=== PATIENT | female | born 2000 | race Hispanic/Latino ===

== ENCOUNTER 2025-05-30 12:53 | Inpatient (IN) | payer BC ==
[~2025-05-30] VITALS: Ht 157.5 cm; Wt 78.9 kg
--- NOTE | 2025-05-30 13:02 | ERN ---
ED Note History of Present Illness Stated Complaint: EPIGASTRIC PAIN. N/V Chief Complaint: Abdominal Pain Time Seen by MD: 12:57 Dictation: PATIENT IS A 25-YEAR-OLD FEMALE HERE WITH EPIGASTRIC PAIN WITH NAUSEA VOMITING AND FEVER ONSET TWO DAYS PRIOR TO ARRIVAL. NO DIARRHEA NO LOSS OF TASTE OR SMELL. SHE STATES SHE HAS A HISTORY OF GASTRITIS HOWEVER DOES NOT HAVE A PRIMARY CARE DOCTOR. LAST INTAKE WAS A SMASHED BANANA THIS MORNING STATES IT MAKES THE PAIN WORSE. DENIES ANY HISTORY OF ABDOMINAL SURGERIES GASTRIC SURGERY. Allergies: Coded Allergies: No Known Allergies (Unverified Allergy, Unknown, 05/30/25) Past Medical History Past Medical History: Other Additional Past Medical Hx: GASTRITIS Surgical History: None LMP: May 08, 2025 RN Note Reviewed/Agreed w/PFSH: Yes Review of System Dictation CONSTITUTIONAL: NEGATIVE EXCEPT FOR HPI FEVER CHILLS HEAD/FACE: NEGATIVE EXCEPT FOR HPI EENT: NEGATIVE EXCEPT FOR HPI RESPIRATORY: NEGATIVE EXCEPT FOR HPI GASTROINTESTINAL/ABDOMINAL: NEGATIVE EXCEPT FOR HPI EPIGASTRIC PAIN WITH NAUSEA VOMITING GENITOURINARY: NEGATIVE EXCEPT FOR HPI MUSCULOSKELETAL: NEGATIVE EXCEPT FOR HPI INTEGUMENTARY: NEGATIVE EXCEPT FOR HPI NEUROLOGICAL/PSYCH: NEGATIVE EXCEPT FOR HPI HEMATOLOGIC/LYMPHATIC: NEGATIVE EXCEPT FOR HPI ALL SYSTEMS NEGATIVE, EXCEPT NOTED ABOVE. 13 POINT REVIEW OF SYSTEMS ASSESSED AND ALL NEGATIVE EXCEPT FOR ABOVE. Initial Vital Sign VS Vital Signs Date Time Temp Pulse Resp B/P (MAP) Pulse Ox O2 Delivery O2 Flow Rate FiO2 05/30/25 12:54 97.9 136 16 126/92 95 Room Air 0 05/30/25 15:14 21 Physical Exam Dictation VITAL SIGNS REVIEWED GENERAL APPEARANCE: ALERT, ORIENTED X 3, MODERATE ACUTE DISTRESS, WELL DEVELOPED, NOURISHED. HEAD AND FACE: NON-TRAUMATIC. EYES: PERRL, PINK CONJUNCTIVAS, EYELID NO TRAUMA, ANTERIOR CHAMBER WITH ARCUS SENILIS. EARS: PINNAS INTACT AND NO SIGNS OF TRAUMA OR ERYTHEMA EAR CANALS CLEAR AND NO DISCHARGE TM NO ERYTHEMA NOSE: NO DISCHARGE, NO BLEEDING. OROPHARYNX: MOUTH NORMAL, TONGUE PINK, PHARYNX CLEAR,NO ERYTHEMA, TONSILS NO EXUDATES, NO ABSCESSES NOTED, MUCOUS MEMBRANE MOIST NECK: SUPPLE, NON-TENDER, NO THYROMEGALY, NO MASSES, NO JVD, NO BRUITS BREAST:DEFERRED CHEST:NO TENDERNESS, NO CREPITUS, NO PARADOXICAL MOVEMENT, NO RETRACTIONS LUNGS:CLEAR, WELL-VENTILATED, SYMMETRIC, NO RALES, NO WHEEZING, NO RHONCHI, NO STRIDOR, GOOD BREATH SOUNDS BILATERALLY HEART: REGULAR RATE, REGULAR RHYTHM, NO MURMUR, NO GALLOPS VASCULAR: NO PERIPHERAL EDEMA, ABDOMEN: SOFT, POSITIVE BOWEL SOUNDS, NONDISTENDED, NO GUARDING, EPIGASTRIC AND LEFT UPPER QUADRANT PAIN TENDERNESS PALPATION RECTAL: DEFERRED GENITAL: DEFERRED NEUROLOGICAL: NORMAL SPEECH, MOTOR FUNCTION INTACT, SENSORY FUNCTION INTACT MUSCULOSKELETAL: NECK NONTENDER, FULL RANGE OF MOTION, BACK NONTENDER, FULL RANGE OF MOTION, EXTREMITIES: NONTENDER, FULL RANGE OF MOTION SKIN: COLOR PINK, DRY, NO TURGOR, NO RASH, NO LACERATIONS, NO ABRASIONS, NO CONTUSIONS. LYMPHATIC: DEFERRED Results (Laboratory/Radiology) Laboratory/Radiology Laboratory Tests Test 05/30/25 13:14 05/30/25 13:19 White Blood Count 28.0 K/uL (4.8-10.8) H Red Blood Count 5.79 MIL/uL (4.00-5.50) H Hemoglobin 16.1 g/dL (12.0-16.0) H Hematocrit 47.6 % (36-48) Mean Corpuscular Volume 82.2 fL (79-99) Mean Corpuscular Hemoglobin 27.8 pg (27.0-33.0) Mean Corpuscular Hemoglobin Concent 33.8 g/dL (32.0-36.0) Red Cell Distribution Width 13.5 % (11.0-15.5) Platelet Count 427 K/uL (130-400) H Mean Platelet Volume 10.4 fL (7.5-10.5) Immature Granulocyte % (Auto) 0.6 % (0-1) Neutrophils (%) (Auto) 88.5 % (40.0-77.0) H Lymphocytes (%) (Auto) 5.5 % (21.0-51.0) L Monocytes (%) (Auto) 5.2 % (3.0-13.0) Eosinophils (%) (Auto) 0.0 % (0.0-8.0) Basophils (%) (Auto) 0.2 % (0.0-5.0) Neutrophils # (Auto) 24.8 K/uL (1.8-7.7) H Lymphocytes # (Auto) 1.5 K/uL (1.0-4.8) Monocytes # (Auto) 1.5 K/uL (0.1-1.0) H Eosinophils # (Auto) 0.00 K/uL (0.00-0.70) Basophils # (Auto) 0.05 K/uL (0.00-0.20) Absolute Immature Granulocyte (auto 0.17 K/uL (0-1) Nucleated Red Blood Cells 0.0 % (0.0-0.19) White Cell Morphology Comment See comments Sodium Level 135 mmol/L (136-145) L Potassium Level 3.8 mmol/L (3.5-5.1) Chloride Level 96 mmol/L (101-111) L Carbon Dioxide Level 24 mmol/L (21-32) Blood Urea Nitrogen 27 mg/dL (7-18) H Creatinine 1.2 mg/dL (0.5-1.0) H Glomerular Filtration Rate Calc 64 mL/min (>90) Random Glucose 138 mg/dL (70-105) H Lactic Acid Level 2.2 mmol/L (0.8-2.5) Total Calcium 9.5 mg/dL (8.5-10.1) Triglycerides Level 86 mg/dL (30-200) Lipase 234 U/L (16-77) H Serum Test, Qualitative NEGATIVE (NEGATIVE) Urine Color YELLOW (YELLOW) Urine Appearance TURBID (CLEAR) Urine pH 5.5 (5.0-8.0) Urine Specific Farner 1.035 (1.001-1.031) Urine Protein 100 mg/dL (NEGATIVE) H Urine Glucose (UA) 50 mg/dL (NEGATIVE) H Urine Ketones 60 mg/dL (NEGATIVE) H Urine Occult Blood SMALL (NEGATIVE) H Urine Nitrate NEGATIVE (NEGATIVE) Urine Bilirubin 1 mg/dL (NEGATIVE) H Urine Urobilinogen 3 mg/dL (0.2-1.0) H Urine Leukocyte Esterase 75 Moses/uL (NEGATIVE) H Urine RBC 26-50 /HPF (0-1) H Urine WBC 26-50 /HPF (0-1) H Urine Squamous Epithelial Cells MANY /HPF (0-2) Urine Non-Squamous Epithelial Cells 1 /HPF (0-2) Urine Bacteria RARE /HPF (None Seen) Urine Hyaline Casts 2-5 /LPF (0-1 /LPF) H Urine Other Casts 9 /LPF (None Seen) Urine HCG, Qualitative NEGATIVE (NEGATIVE) CLINICAL INFORMATION Small bowel obstruction COMPARISON None. TECHNIQUE Frontal view chest. FINDINGS Lines and tubes: None Lungs: Low lung volumes with bronchovascular crowding but without focal consolidation. Pleura: Unremarkable. No effusion or pneumothorax. Cardiomediastinal Silhouette: Unremarkable. Bones: Normal for age. Soft Tissues: Normal. IMPRESSION Low lung volumes with bronchovascular crowding but without focal consolidation. /[facility] Labs Reviewed?: Yes ED Course ED Course Orders Procedure Category Date Status Time Blood Cult KUMAR 05/30/25 In Process 12:59 Lactic Acid LAB 05/30/25 Complete 12:59 Cbc With Differential LAB 05/30/25 Complete 12:59 ,Urine Test LAB 05/30/25 Complete 12:59 Urinalysis Profile LAB 05/30/25 Complete 12:59 0.9%Nacl 1000ml (Ns PHA 05/30/25 Complete 1000ml) 13:00 Morphine 2mg Syg PHA 05/30/25 Complete (Morphine 2mg Syg) 13:00 Ondansetron 4mg Inj PHA 05/30/25 Complete (Zofran 4mg Inj) 13:00 Famotidine 20mg Vial PHA 05/30/25 Complete (Pepcid 20mg Vial) 13:00 Lipase LAB 05/30/25 Complete 12:59 Basic Metabolic Panel LAB 05/30/25 Complete 12:59 Testing, LAB 05/30/25 Complete Serum Hcg 13:56 0.9%Nacl 1000ml (Ns PHA 05/30/25 In Process 1000ml) 14:00 Ceftriaxone 2gm Vial PHA 05/30/25 In Process (Rocephin 2gm Inj) 13:56 Ct Abdomen/Pelvis CT 05/30/25 Resulted W/Contrast 13:56 Triglycerides LAB 05/30/25 Complete 13:59 Culture Urine KUMAR 05/30/25 In Process 14:03 Iohexol (Omnipaque) PHA 05/30/25 Complete 14:27 Morphine 4mg Syg PHA 05/30/25 In Process (Morphine 4mg Syg) 16:30 Morphine 4mg Syg PHA 05/30/25 Complete (Morphine 4mg Syg) 16:30 Morphine 4mg Syg PHA 7/27/25 In Process (Morphine 4mg Syg) 16:30 Lactic Acid (Removed) LAB 05/30/25 Logged 16:50 Current Medications Medications (Trade) Dose Ordered Sig/Aleksandr Route PRN Reason Start Time Stop Time Status Last Admin Dose Admin Ceftriaxone Sodium (Rocephin 2gm Inj) 2 gm ONCE IVPB 05/30/25 13:56 05/30/25 18:00 05/30/25 14:17 Famotidine (Pepcid 20mg Vial) 20 mg ONCE ONCE IV 05/30/25 13:00 05/30/25 13:02 DC 05/30/25 13:26 Iohexol (Omnipaque) 75 ml STK-MED ONCE IV 05/30/25 14:27 05/30/25 14:28 DC Morphine Sulfate (morPHINE 2MG SYG) 2 mg ONCE ONCE IVP 05/30/25 13:00 05/30/25 13:02 DC 05/30/25 13:26 Morphine Sulfate (morPHINE 4MG SYG) 4 mg ONCE IVP 05/30/25 16:30 05/30/25 20:30 05/30/25 16:11 Morphine Sulfate (morPHINE 4MG SYG) 4 mg ONCE IVP 05/30/25 16:30 05/30/25 20:30 Morphine Sulfate (morPHINE 4MG SYG) 4 mg ONCE ONCE IVP 05/30/25 16:30 05/30/25 16:07 DC Ondansetron HCl (zoFRAN 4MG INJ) 4 mg ONCE ONCE IVP 05/30/25 13:00 05/30/25 13:02 DC 05/30/25 13:26 Sodium Chloride 1,000 ml @ 0 mls/hr ONCE ONCE IV 05/30/25 13:00 05/30/25 13:02 DC 05/30/25 13:26 Sodium Chloride 2,286 ml @ 762 mls/hr ONCE IV 05/30/25 14:00 05/30/25 18:00 05/30/25 14:17 Vital Signs Date Time Temp Pulse Resp B/P (MAP) Pulse Ox O2 Delivery O2 Flow Rate FiO2 05/30/25 15:14 83 16 114/73 98 Room Air* 0 21 05/30/25 12:54 97.9 136 16 126/92 95 Room Air 0 1555/SPOKE WITH PATIENT AND HER MOTHER AT BEDSIDE AT LENGTH SHE REMAINS HEMODYNAMICALLY STABLE SHE IS A[place] [address]28 WBCS WITH PANCREATITIS. SHE IS ALSO SEVERELY DEHYDRATED WITH A AN ACUTE KIDNEY INJURY SHE HAS BEEN GIVEN FLUIDS ROCEPHIN AND AGREES TO BE ADMITTED TO THE HOSPITAL. NO PAIN AT THIS TIME NO NAUSEA VOMITING AT THIS TIME. NO PRIMARY CARE DOCTOR TO FOLLOW UP WITH THE [id number]/ 1655/ here and reviewe CT labs and interventions for pancreatitis and pain management to include 30 per kilos fluids and Rocephin 2 g. Medical Decision Making MDM MDM: DIFFERENTIAL DIAGNOSIS: ACUTE APPENDICITIS/DIVERTICULITIS/ECTOPIC /PANCREATITIS/HYPERTRIGLYCERIDEMIA/ELECTROLYTE IMBALANCE/DEHYDRATION/SEPSIS RATIONALE: TESTS CONSIDERED AND ORDERED SECONDARY TO SHARED DECISION MAKING INCLUDE: LABS, AND RADIOLOGY PREVIOUS OUTSIDE RECORDS REVIEWED: OLD ER VISITS. RISK OF COMPLICATION AND/OR MORBIDITY OR MORTALITY OF PATIENT MANAGEMENT: MODERATE MEDICATIONS-PER MEDICATION RECONCILIATION NEED FOR HOSPITALIZATION: PATIENT DOES MEET CRITERIA FOR HOSPITALIZATION. FLUID RESUSCITATION NPO AND PAIN MANAGEMENT. NEED FOR EMERGENCY MAJOR/MINOR SURGERY: NO THERE ARE NO SOCIAL CONCERNS WITH THIS PATIENT. PRESCRIPTION DRUG MANAGEMENT PRESCRIPTIONS WILL INCLUDE SYMPTOMATIC CARE PATIENT'S PRIOR EXTERNAL MEDICAL RECORDS FROM OTHER ER VISITS WERE REVIEWED BY ME INDICATED. PRIOR TESTING AND RESULTS FROM PREVIOUS VISITS WERE REVIEWED. PRIOR TESTS WERE TAKEN INTO ACCOUNT WITH MEDICAL DECISION MAKING AND RESOURCE UTILIZATION, INDEPENDENT HISTORIAN/HISTORIANS WERE USED TO OBTAIN COMPLETE MEDICAL HISTORY. I INDEPENDENTLY INTERPRETED THE TEST THAT WERE PERFORMED, RESULTS WERE REVIEWED BY ME AND CONSIDERED FINDINGS ON RADIOLOGY IF ORDERED. MEDICAL MANAGEMENT AND EXAMINATION INTERPRETATION DISCUSSIONS WERE HAD BY ME WITH OTHER QUALIFIED HEALTHCARE PROFESSIONALS INDICATED FOR THE PATIENT'S CARE. DX & DISP Disposition: Inpatient Decision to Admit Time: 15:53 Departure Impression: Primary Impression: Acute pancreatitis Additional Impressions: Acute kidney injury, Nausea & vomiting, Sepsis Condition: Stable Time of Disposition: 15:53 I have reviewed the case, and I agree with, Diagnosis and Plan YAJAIRA BOBBY NP May 30, 2025 13:02
[2025-05-30 13:21] LABS: IMMATURE GRANULOCYTE ABSOLUTE 0.17 K/uL (0-1); NUCLEATED RED BLOOD CELLS 0.0 % (0.0-0.19); PLATELET COUNT (AUTO) 427 K/uL (130-400); RED BLOOD CELL COUNT(AUTO) 5.79 MIL/uL (4.00-5.50); RED CELL DISTRIBUTION WIDTH 13.5 % (11.0-15.5); WHITE BLOOD COUNT (AUTO) 28.0 K/uL (4.8-10.8)
[2025-05-30] MEDS: 0.9%NACL 1000ML 1,000 ML IV ONE (13:26)
[2025-05-30] MEDS: FAMOTIDINE 20MG VIAL IV ONE (13:26)
[2025-05-30 13:47] LABS: CREATININE 1.2 mg/dL (0.5-1.0); GLOMERULAR FILTR. RATE CALC 64.0 mL/min (>90); GLUCOSE,RANDOM 138.0 mg/dL (70-105); SODIUM SERUM 135.0 mmol/L (136-145); UREA NITROGEN, BLOOD 27.0 mg/dL (7-18)
[2025-05-30 13:56] LABS: APPEARANCE,URINE TURBID (CLEAR); GLUCOSE, URINE (UA) 50 mg/dL (NEGATIVE); LEUKOCYTE ESTERASE ,URINE 75 Leu/uL (NEGATIVE); NITRATE,URINE NEGATIVE (NEGATIVE); OCCULT BLOOD,URINE SMALL (NEGATIVE)
[2025-05-30 14:00] LABS: HCG,QUALITATIVE URINE NEGATIVE (NEGATIVE)
[2025-05-30 14:03] LABS: ADD UA MICROSCOPIC YES
[2025-05-30 14:05] LABS: NON-SQUAMOUS EPITHELIAL CELL 1 /HPF (0-2); OTHER CASTS, URINE 9 /LPF (None Seen); SQUAMOUS EPITHELIAL CELL,UR MANY /HPF (0-2)
[2025-05-30] MEDS: 0.9%NACL 1000ML 2,286 ML IV SCH (14:17)
[2025-05-30] MEDS ORDERED: IOHEXOL-350 75 ML VIAL IV ONE (14:27)
--- NOTE | 2025-05-30 15:26 | HMCIMG ---
CLINICAL INFORMATION Periumbilical pain COMPARISON None. TECHNIQUE Volumetric helical CT images of the abdomen and pelvis with contrast FINDINGS Liver: Normal. Gallbladder: No calcified gallstones or sludge. No wall thickening. Biliary System: Non-dilated. Pancreas: Normal. Spleen: Normal. Adrenals: Normal. Kidneys: Normal bilaterally. Ureters: Normal. Bladder: Normal. Pelvis: No pelvic masses. No abnormal pelvic fluid. Stomach: Normal. Duodenum: Normal. Small Bowel: Normal. Colon: Normal. Appendix: Normal. Lymph Nodes: No lymphadenopathy. Peritoneum: No ascites or free air. Retroperitoneum: Normal. Vessels: Normal. Abdominal Wall: Normal. Bones: Normal. Lung Bases: Normal. Inferior Mediastinum: Normal. IMPRESSION No acute intra-abdominal findings. Normal appendix. /King
--- NOTE | 2025-05-30 17:35 | HP ---
[facility] HISTORY AND PHYSICAL Date of Service: May 30, 2025 Time of Service: 17:28 Belly pain with nausea or vomiting HISTORY OF PRESENT ILLNESS: [ 25-year-old female who comes with two day history of epigastric pain with nausea and vomiting made worse by food. She describes the pain as sharp located in the epigastrium radiating over the left upper quadrant. She has had associated nausea and vomiting multiple times vomitus was yellow and today is just watery slightly yellow-tinged in about 100 cc in the bag next to the bed. She states that she had gastroenteritis about a month ago came to the emergency department and was given some medications for her stomach. Later the patient went to [place] and was told her organs were failing. Workup done today include a CAT scan of the abdomen and pelvis which was negative however laboratory data shows lipase of 236 or elevated ] REVIEW OF SYSTEMS CONSTITUTIONAL: Denies fevers, chills, or night sweats. No unintentional weight loss reported. NEUROLOGICAL: Denies headache, amaurosis fugax, motor weakness, sensory deficit, vertigo/spinning sensation, gait abnormalities, or tremors. ENT: No hearing loss, otalgia, otorrhea, rhinitis, rhinorrhea, hoarseness, or sore throat. CARDIOVASCULAR: Denies any exertional angina, dyspnea on exertion, orthopnea, paroxysmal nocturnal dyspnea, palpitations, life-threatening arrhythmias, claudication. PULMONARY: Denies any shortness of breath, cough, phlegm/sputum, hemoptysis, pleuritic chest pain. SLEEP: Denies morning headaches, daytime somnolence or napping. Denies difficulty falling asleep, staying asleep, waking from sleep. Denies knowledge of snoring. GASTROINTESTINAL: Denies any type of dysphagia to either liquids or solids. Positive nausea, vomiting, no pyrosis, no early satiety, positive abdominal pain, no diarrhea, constipation, or changes in stool consistency or caliber. Denies coffee-ground emesis, hematemesis, hematochezia, or melanotic stools. GENITOURINARY: Denies frequency, urgency, nocturia, hematuria or incontinence (Storage/Irritative symptoms.) Low urinary stream, straining to void, urinary intermittency or hesitancy, splitting of the voiding stream, terminal dribbling. ENDOCRINOLOGIC: Denies polyuria, polydipsia, polyphagia or heat/cold intolerances. HEMATOLOGIC: Denies thrombophilia/previous clots, or coagulopathy/bleeding disorders. ONCOLOGIC: Denies personal history of malignancy. DERMATOLOGIC: Denies rashes or pruritus. PSYCHIATRIC: Denies any suicidal or homicidal ideation. Denies hallucinations. PAST MEDICAL HISTORY: [No hypertension, diabetes, heart disease, TB or hepatitis does not take any medicines on a regular basis ] PAST SURGICAL HISTORY: [Negative ] PAST SOCIAL HISTORY: [ She lives with her mother her father of an [place], she is an occasional smoker occasional drinker denies any drug use or IV drug use] FAMILY HISTORY: [ See above ] Coded Allergies: No Known Allergies (Unverified Allergy, Unknown, 05/30/25) PHYSICAL EXAM GENERAL APPEARANCE: The patient is awake, alert, and oriented, in no acute cardiopulmonary distress. NEUROLOGICAL: Cranial nerves II-XII grossly intact. Motor is 5/5 in bilateral upper and lower extremities proximal to distal. No sensory deficits. HEENT: Face is symmetric. Pupils are equal and reactive. Extraocular movements are intact. NECK: Supple. No JVD. No thyromegaly. No submental, submandibular, pre-/p ostauricular, occipital or supraclavicular lymphadenopathy. CHEST: Normal chest expansion. No Telemetry. LUNGS: Absence of any rales, rhonchi or any wheezing. CARDIOVASCULAR: Regular. S1 and S2 normal. No appreciable rubs, murmurs or gallops. ABDOMEN: Soft, positive tenderness, and nondistended. There is no rebound, voluntary guarding, or rigidity. Bowel sounds are hypoactive throughout the abdomen : Deferred. No Bernard. EXTREMITIES: Non-edematous and not cyanotic. No clubbing. Good capillary refill. SKIN: No skin breakdown. Vital Sign (Last 24 Hours) 05/30/25 05/30/25 12:54 15:14 Temp 97.9 Pulse 83 Resp 16 B/P (MAP) 114/73 Pulse Ox 98 O2 Delivery Room Air* O2 Flow Rate 0 FiO2 21 LABS: Laboratory: Test 05/30/25 13:19 05/30/25 13:14 Range/Units Urine Color YELLOW YELLOW Urine Appearance TURBID CLEAR Urine pH 5.5 5.0-8.0 Urine Specific Pindall 1.035 H 1.001-1.031 Urine Protein 100 H NEGATIVE mg/dL Urine Glucose (UA) 50 H NEGATIVE mg/dL Urine Ketones 60 H NEGATIVE mg/dL Urine Occult Blood SMALL H NEGATIVE Urine Nitrate NEGATIVE NEGATIVE Urine Bilirubin 1 H NEGATIVE mg/dL Urine Urobilinogen 3 H 0.2-1.0 mg/dL Urine Leukocyte Esterase 75 H NEGATIVE Moses/uL Urine RBC 26-50 H 0-1 /HPF Urine WBC 26-50 H 0-1 /HPF Urine Squamous Epithelial Cells MANY 0-2 /HPF Urine Non-Squamous Epithelial Cells 1 0-2 /HPF Urine Bacteria RARE None Seen /HPF Urine Hyaline Casts 2-5 H 0-1 /LPF /LPF Urine Other Casts 9 None Seen /LPF Urine HCG, Qualitative NEGATIVE NEGATIVE White Blood Count 28.0 H 4.8-10.8 K/uL Red Blood Count 5.79 H 4.00-5.50 MIL/uL Hemoglobin 16.1 H 12.0-16.0 g/dL Hematocrit 47.6 36-48 % Mean Corpuscular Volume 82.2 79-99 fL Mean Corpuscular Hemoglobin 27.8 27.0-33.0 pg Mean Corpuscular Hemoglobin Concent 33.8 32.0-36.0 g/dL Red Cell Distribution Width 13.5 11.0-15.5 % Platelet Count 427 H 130-400 K/uL Mean Platelet Volume 10.4 7.5-10.5 fL Immature Granulocyte % (Auto) 0.6 0-1 % Neutrophils (%) (Auto) 88.5 H 40.0-77.0 % Lymphocytes (%) (Auto) 5.5 L 21.0-51.0 % Monocytes (%) (Auto) 5.2 3.0-13.0 % Eosinophils (%) (Auto) 0.0 0.0-8.0 % Basophils (%) (Auto) 0.2 0.0-5.0 % Neutrophils # (Auto) 24.8 H 1.8-7.7 K/uL Lymphocytes # (Auto) 1.5 1.0-4.8 K/uL Monocytes # (Auto) 1.5 H 0.1-1.0 K/uL Eosinophils # (Auto) 0.00 0.00-0.70 K/uL Basophils # (Auto) 0.05 0.00-0.20 K/uL Absolute Immature Granulocyte (auto 0.17 0-1 K/uL Nucleated Red Blood Cells 0.0 0.0-0.19 % White Cell Morphology Comment See comments Sodium Level 135 L 136-145 mmol/L Potassium Level 3.8 3.5-5.1 mmol/L Chloride Level 96 L 101-111 mmol/L Carbon Dioxide Level 24 21-32 mmol/L Blood Urea Nitrogen 27 H 7-18 mg/dL Creatinine 1.2 H 0.5-1.0 mg/dL Glomerular Filtration Rate Calc 64 >90 mL/min Random Glucose 138 H 70-105 mg/dL Lactic Acid Level 2.2 0.8-2.5 mmol/L Total Calcium 9.5 8.5-10.1 mg/dL Triglycerides Level 86 30-200 mg/dL Lipase 234 H 16-77 U/L Serum Test, Qualitative NEGATIVE NEGATIVE Current Medications Medications (Trade) Dose Ordered Sig/Aleksandr Route PRN Reason Start Time Stop Time Status Last Admin Dose Admin Ceftriaxone Sodium (Rocephin 2gm Inj) 2 gm ONCE IVPB 05/30/25 13:56 05/30/25 18:00 05/30/25 14:17 2 GM Morphine Sulfate (morPHINE 4MG SYG) 4 mg ONCE IVP 05/30/25 16:30 05/30/25 20:30 05/30/25 16:11 4 MG Morphine Sulfate (morPHINE 4MG SYG) 4 mg ONCE IVP 05/30/25 16:30 05/30/25 20:30 Sodium Chloride 2,286 ml @ 762 mls/hr ONCE IV 05/30/25 14:00 05/30/25 18:00 05/30/25 14:17 762 MLS/HR DIAGNOSTICS / RADIOLOGY: [ ] ASSESSMENT: [ 1. Acute abdominal pain with nausea vomiting 2. Pancreatitis acute 3. Leukocytosis 4. Possible UTI ] PLAN: [Keep her NPO, IV fluids and antibiotics as has already been started here in the emergency department out of an abundance of precaution we will get a General surgery consultation and recheck her pancreatic enzymes in the morning Morphine and Zofran for pain control ] SUE CAMACHO MD May 30, 2025 17:35
[2025-05-30] MEDS: DEXTROSE 5 %-0.45 % NACL 1,000 ML IV SCH (19:35)
[2025-05-30] MEDS: FAMOTIDINE 20MG VIAL IV SCH (21:47)
[2025-05-30 22:10] VITALS: BP 117/71; PULSE 74; RESP 20; TEMP 98.6
--- NOTE | 2025-05-30 22:10 | NUR ---
Pt. received AAOX3 via stretcher from ER @ this time, transferred to bed, made comfortable, tolerated well, oriented to rm./surroundings, instructed on use of call-light, verbalized understanding, call-light in reach, rails up X2; no discomforts voiced out @ this time.
[2025-05-31] VITALS (8 sets, daily range): BP systolic 104–147; BP diastolic 63–92; PULSE 54–87; RESP 17–20; TEMP 97.8–98.6; O2SAT 98–99
[2025-05-31 03:41] LABS: IMMATURE GRANULOCYTE ABSOLUTE 0.05 K/uL (0-1); NUCLEATED RED BLOOD CELLS 0.0 % (0.0-0.19); PLATELET COUNT (AUTO) 286 K/uL (130-400); RED BLOOD CELL COUNT(AUTO) 4.75 MIL/uL (4.00-5.50); RED CELL DISTRIBUTION WIDTH 13.3 % (11.0-15.5); WHITE BLOOD COUNT (AUTO) 13.1 K/uL (4.8-10.8)
[2025-05-31 03:54] LABS: ASPARTATE AMINOTRANSFERASE 15.0 U/L (10-37); CREATININE 0.6 mg/dL (0.5-1.0); GLOMERULAR FILTR. RATE CALC 128.0 mL/min (>90); GLUCOSE,RANDOM 96.0 mg/dL (70-105); SODIUM SERUM 137.0 mmol/L (136-145); TOTAL PROTEIN, SERUM 6.3 g/dL (6.0-8.3); UREA NITROGEN, BLOOD 12.0 mg/dL (7-18)
[2025-05-31 08:08] LABS: LACTATE DEHYDROGENASE 149.0 U/L (81-234)
--- NOTE | 2025-05-31 09:05 | NUR ---
DCP: HOME Sw met with pt's mother Shantelle Monroy [phone]. per mother, pt lives with her in a mobile home with ramp. Pt works at [employer], drives, able o complete ADLS and IADLS on her own. Pt is independent of ambulation, no DMe or in home care services. Pt has no PCP and uses [facility] for rx needs. Community resources given, denies dc neds, will return home with mother Addendum: 05/31/25 at 0908 by AIDAN ESTEBAN Amended: Links added.
[2025-05-31 09:37] LABS: AMPHET/METH SCREEN,URINE NEGATIVE (NEGATIVE); BARBITURATE SCREEN, URINE NEGATIVE (NEGATIVE); CANNABINOID SCREEN,URINE POSITIVE (NEGATIVE); COCAINE SCREEN,URINE NEGATIVE (NEGATIVE)
--- NOTE | 2025-05-31 10:12 | CONS ---
CONSULT NOTE: Consulting physician: Dr. Gary Consulting service: [facility] Reason for consultation: Pancreatitis History of present illness: This is a 25-year-old female with no significant medical history that has been consulted to surgery after presenting to the hospital with a two day history of epigastric pain associated with nausea and vomiting made worse with food. Patient's starts that she has had excessive vomiting over the last two days. Patient reports similar presentation with diagnosis of gastroenteritis about a month prior. Patient presentation reportedly similar to previous hospitaliza tion. Lipase initially greater than 236 which could be from excessive retching. No trending down. On physical exam no significant abdominal distention but patient tender no initial signs of peritonitis. Patient currently NPO. Imaging performed showing no signs of cholelithiasis or gallbladder such. Medical history: No hypertension, diabetes, heart disease, TB or hepatitis does not take any medicines on a regular basis PAST SURGICAL HISTORY: Negative PAST SOCIAL HISTORY: She lives with her mother her father of an [place], she is an occasional smoker occasional drinker denies any drug use or IV drug use FAMILY HISTORY: See above Coded Allergies: No Known Allergies (Unverified Allergy, Unknown, 05/30/25) Review of systems: General: No Fever, No Chills, No Night Sweats, No Fatigue, No Malaise, No Appetite, No Other HEENT: No Head Aches, No Visual Changes, No Eye Pain, No Ear Pain, No Dysphasia, No Sinus Congestion, No Post Nasal Drip, No Sore Throat, No Other Pulmonary: No Dyspnea, No Cough, No Pleuritic Chest Pain, No Other Cardiovascular: No: Chest Pain, Palpitations, Orthopnea, Paroxysmal No Dyspnea, Edema, Lt Headedness, Other Gastrointestinal: No: Nausea, Vomiting, Diarrhea, Constipation, Melena, Hematochezia, Other Genitourinary: No Dysuria, No Frequency, No Incontinence, No Hematuria, No Retention, No Other Musculoskeletal: No: other, neck pain, shoulder pain, arm pain, back pain, hand pain, leg pain, foot pain Skin: No Urticaria, No Rash, No Other Neurological: No: Weakness, Numbness, Incoordination, Change in speech, Confusion, Seizures, Other Physical exam: General: Awake alert and oriented Heart: Regular rate and rhythm} Lungs: Clear to auscultation no distress Abdomen: [Soft, nontender, nondistended diffuse abdominal discomfort peritonitis Assessment: This is a 25-year-old female with the acute pancreatitis and abdominal pain of unknown etiology Plan: At this point in time no immediate surgical intervention planned Pancreatitis likely from excessive retching Patient to remain NPO Redraw and lipase tomorrow No immediate surgical intervention at this time Dr. Acharya to be updated patient's status and surgical team to follow patient closely PEDRO PABLO GRIFFIN Jr. May 31, 2025 10:12
[2025-05-31] MEDS: MAG/ALUM/SIMETH 30 ML UDCUP PO ONE (12:15)
--- NOTE | 2025-05-31 12:16 | NUR ---
MEDICATION REFUSAL PATIENT REFUSED MAG-AL-PLUS. PATIENT STATES THAT TAKING PO MEDICATIONS MAKES HER NAUSEA WORSE. EDUCATION PROVIDED. PATIENT REFUSED.
--- NOTE | 2025-05-31 14:12 | PN ---
[facility] PROGRESS NOTE Date of Service: May 31, 2025 Time of Service: 14:01 SUBJECTIVE: She is a 25-year-old female presented with a chief complaint of nausea and vomiting associated with epigastric abdominal pain for last 2 days. He had 15- 20 episodes of vomiting yesterday which was greenish. She did not complain of hematemesis, loose stool, burning micturition, shortness of breath, cough, dizziness and constipation. She said that she occasionally consumes marijuana and last time she had was 1 week back. She admitted that her abdominal pain gets better with taking bath. She do not consume alcohol. In ED the pertinent lab was [place] 09926, lipase 236, creatinine 1.2, lactic acid 2.2 has L on, urine with pus cells 25-50, positive for leukocyte esterase. CT abdomen pelvis with contrast revealed no acute abdomen abnormality. She was kept NPO, and started on D NS at 1:25 a.m. mL/hour, Rocephin1 g daily, and ondansetron. She was admitted on the floor for further evaluation and management. 05/31/2025-she was evaluated bedside this morning. She was complaining of abdominal pain and nausea. He is hemodynamically stable her pertinent lab [place] CBC 33429, potassium 3.1, lactic acid 2.2, lipase 234>186, CRP 6. She is kept NPO for possible acute pancreatitis and intractable nausea vomiting. She is continued on IV fluid, Zofran PRN, morphine PRN and Rocephin. Electrolytes repleted. Urine culture was sent. Started on Protonix 40 mg IV b.i.d. consulted Gastroenterology for necessary evaluation. Plan as discussed below. REVIEW OF SYSTEMS CONSTITUTIONAL: Denies fevers, chills, or night sweats. No unintentional weight loss reported. NEUROLOGICAL: Denies headache, amaurosis fugax, motor weakness, sensory deficit, vertigo/spinning sensation, gait abnormalities, or tremors. ENT: No hearing loss, otalgia, otorrhea, rhinitis, rhinorrhea, hoarseness, or sore throat. CARDIOVASCULAR: Denies any exertional angina, dyspnea on exertion, orthopnea, paroxysmal nocturnal dyspnea, palpitations, life-threatening arrhythmias, cla udication. PULMONARY: Denies any shortness of breath, cough, phlegm/sputum, hemoptysis, pleuritic chest pain. SLEEP: Denies morning headaches, daytime somnolence or napping. Denies difficulty falling asleep, staying asleep, waking from sleep. Denies knowledge of snoring. GASTROINTESTINAL: Denies any type of dysphagia to either liquids or solids. Positive nausea, vomiting, no pyrosis, no early satiety, positive abdominal pain, no diarrhea, constipation, or changes in stool consistency or caliber. Denies coffee-ground emesis, hematemesis, hematochezia, or melanotic stools. GENITOURINARY: Denies frequency, urgency, nocturia, hematuria or incontinence (Storage/Irritative symptoms.) Low urinary stream, straining to void, urinary intermittency or hesitancy, splitting of the voiding stream, terminal dribbling. ENDOCRINOLOGIC: Denies polyuria, polydipsia, polyphagia or heat/cold intolerances. HEMATOLOGIC: Denies thrombophilia/previous clots, or coagulopathy/bleeding disorders. ONCOLOGIC: Denies personal history of malignancy. DERMATOLOGIC: Denies rashes or pruritus. PSYCHIATRIC: Denies any suicidal or homicidal ideation. Denies hallucinations. PHYSICAL EXAM GENERAL APPEARANCE: The patient is awake, alert, and oriented, in no acute cardiopulmonary distress. NEUROLOGICAL: Cranial nerves II-XII grossly intact. Motor is 5/5 in bilateral upper and lower extremities proximal to distal. No sensory deficits. HEENT: Face is symmetric. Pupils are equal and reactive. Extraocular movements are intact. NECK: Supple. No JVD. No thyromegaly. No submental, submandibular, pre- /postauricular, occipital or supraclavicular lymphadenopathy. CHEST: Normal chest expansion. No Telemetry. LUNGS: Absence of any rales, rhonchi or any wheezing. CARDIOVASCULAR: Regular. S1 and S2 normal. No appreciable rubs, murmurs or gallops. ABDOMEN: Soft, positive tenderness, and nondistended. There is no rebound, voluntary guarding, or rigidity. Bowel sounds are hypoactive throughout the abdomen : Deferred. No [place]. EXTREMITIES: Non-edematous and not cyanotic. No clubbing. Good capillary refill. SKIN: No skin breakdown. Vital Signs (last 8hr) Date Time Temp Pulse Resp B/P (MAP) Pulse Ox O2 Delivery O2 Flow Rate FiO2 05/31/25 11:11 97.9 56 18 124/77 99 Room Air 7/28/25 09:05 99 Room Air* 0 21 05/31/25 08:35 98.1 87 18 147/92 99 Room Air LABS: Laboratory: Test 05/31/25 03:10 05/30/25 20:14 05/30/25 13:19 05/30/25 13:14 Range/Units White Blood Count 13.1 #H 4.8-10.8 K/uL Red Blood Count 4.75 4.00-5.50 MIL/uL Hemoglobin 13.2 12.0-16.0 g/dL Hematocrit 40.5 36-48 % Mean Corpuscular Volume 85.3 79-99 fL Mean Corpuscular Hemoglobin 27.8 27.0-33.0 pg Mean Corpuscular Hemoglobin Concent 32.6 32.0-36.0 g/dL Red Cell Distribution Width 13.3 11.0-15.5 % Platelet Count 286 # 130-400 K/uL Mean Platelet Volume 10.6 H 7.5-10.5 fL Immature Granulocyte % (Auto) 0.4 0-1 % Neutrophils (%) (Auto) 64.1 40.0-77.0 % Lymphocytes (%) (Auto) 26.6 21.0-51.0 % Monocytes (%) (Auto) 8.5 3.0-13.0 % Eosinophils (%) (Auto) 0.2 0.0-8.0 % Basophils (%) (Auto) 0.2 0.0-5.0 % Neutrophils # (Auto) 8.4 H 1.8-7.7 K/uL Lymphocytes # (Auto) 3.5 1.0-4.8 K/uL Monocytes # (Auto) 1.1 H 0.1-1.0 K/uL Eosinophils # (Auto) 0.02 0.00-0.70 K/uL Basophils # (Auto) 0.03 0.00-0.20 K/uL Absolute Immature Granulocyte (auto 0.05 0-1 K/uL Nucleated Red Blood Cells 0.0 0.0-0.19 % Sodium Level 137 136-145 mmol/L Potassium Level 3.1 L 3.5-5.1 mmol/L Chloride Level 103 101-111 mmol/L Carbon Dioxide Level 28 21-32 mmol/L Blood Urea Nitrogen 12 7-18 mg/dL Creatinine 0.6 0.5-1.0 mg/dL Glomerular Filtration Rate Calc 128 >90 mL/min Random Glucose 96 70-105 mg/dL Total Calcium 8.4 L 8.5-10.1 mg/dL Total Bilirubin 0.4 0.2-1.0 mg/dL Aspartate Amino Transf (AST/SGOT) 15 10-37 U/L Alanine Aminotransferase (ALT/SGPT) 20 12-78 U/L Alkaline Phosphatase 91 50-136 U/L Lactate Dehydrogenase 149 81-234 U/L C-Reactive Protein, Quantitative 6.00 H 0.5-3.0 mg/L Total Protein 6.3 6.0-8.3 g/dL Albumin 3.6 3.5-5.0 g/dL Lipase 186 H 16-77 U/L Procalcitonin < 0.05 L 0.05-0.5 ng/mL Lactic Acid Level 1.1 0.8-2.5 mmol/L Urine Color YELLOW YELLOW Urine Appearance TURBID CLEAR Urine pH 5.5 5.0-8.0 Urine Specific [place] 1.035 H 1.001-1.031 Urine Protein 100 H NEGATIVE mg/dL Urine Glucose (UA) 50 H NEGATIVE mg/dL Urine Ketones 60 H NEGATIVE mg/dL Urine Occult Blood SMALL H NEGATIVE Urine Nitrate NEGATIVE NEGATIVE Urine Bilirubin 1 H NEGATIVE mg/dL Urine Urobilinogen 3 H 0.2-1.0 mg/dL Urine Leukocyte Esterase 75 H NEGATIVE Moses/uL Urine RBC 26-50 H 0-1 /HPF Urine WBC 26-50 H 0-1 /HPF Urine Squamous Epithelial Cells MANY 0-2 /HPF Urine Non-Squamous Epithelial Cells 1 0-2 /HPF Urine Bacteria RARE None Seen /HPF Urine Hyaline Casts 2-5 H 0-1 /LPF /LPF Urine Other Casts 9 None Seen /LPF Urine HCG, Qualitative NEGATIVE NEGATIVE Urine Opiates Screen NEGATIVE NEGATIVE Urine Barbiturates Screen NEGATIVE NEGATIVE Urine Phencyclidine Screen NEGATIVE NEGATIVE Urine Amphetamines Screen NEGATIVE NEGATIVE Urine Benzodiazepines Screen NEGATIVE NEGATIVE Urine Cocaine Screen NEGATIVE NEGATIVE Urine Marijuana (THC) Screen POSITIVE H NEGATIVE White Cell Morphology Comment See comments Triglycerides Level 86 30-200 mg/dL Serum Test, Qualitative NEGATIVE NEGATIVE Current Medications Medications (Trade) Dose Ordered Sig/Aleksandr Route PRN Reason Start Time Stop Time Status Last Admin Dose Admin Ceftriaxone Sodium (ROCEphine 1G INJ) 1 gm Q24H IVPB 05/30/25 19:30 06/09/25 19:29 05/30/25 19:33 1 GM Ceftriaxone Sodium (Rocephin 2gm Inj) 2 gm ONCE IVPB 05/30/25 13:56 05/30/25 18:00 DC 05/30/25 14:17 2 GM Dextrose/Sodium Chloride 1,000 ml @ 125 mls/hr Q8H IV 05/30/25 19:30 06/29/25 19:29 05/31/25 06:27 125 MLS/HR Famotidine (Pepcid 20mg Vial) 20 mg Q12H9 IV 05/30/25 21:00 05/31/25 11:51 DC 05/31/25 09:05 20 MG Morphine Sulfate (morPHINE 4MG SYG) 4 mg ONCE IVP 05/30/25 16:30 05/30/25 20:30 DC 05/30/25 16:11 4 MG Morphine Sulfate (morPHINE 4MG SYG) 4 mg ONCE IVP 05/30/25 16:30 05/30/25 20:30 DC Morphine Sulfate (morPHINE 4MG SYG) 4 mg Q4H PRN IV MODERATE PAIN (4-6) 05/30/25 19:30 06/06/25 19:29 05/31/25 12:58 4 MG Ondansetron HCl (zoFRAN 4MG INJ) 4 mg Q8H PRN IVP NAUSEA/VOMITING 05/30/25 19:30 06/29/25 19:29 05/31/25 07:34 4 MG Pantoprazole Sodium (PROTonix 40MG INJ) 40 mg BID IVP 05/31/25 21:00 06/30/25 20:59 Potassium Chloride 100 ml @ 50 mls/hr AD PRN IV POTASSIUM PROTOCOL 05/31/25 09:00 06/30/25 08:59 05/31/25 12:58 50 MLS/HR Sodium Chloride 2,286 ml @ 762 mls/hr ONCE IV 05/30/25 14:00 05/30/25 18:00 DC 05/30/25 14:17 762 MLS/HR DIAGNOSTICS / RADIOLOGY: PATIENT: GIBSON SANDOVAL MR#: [id number] : 2000 SEX: F AGE: 25 LOCATION: [facility] ORDER [id number] STATUS: [facility] ER REPORT#: [id number] SERVICE REASON: PERIUMBILICAL PAIN, [id number] WBCS ORDERING PHYSICIAN: YAJAIRA BOBBY NP PROCEDURE: ABD PEL W - CT ABDOMEN/PELVIS W/CONTRAST CLINICAL INFORMATION Periumbilical pain COMPARISON None. TECHNIQUE Volumetric helical CT images of the abdomen and pelvis with contrast FINDINGS Liver: Normal. Gallbladder: No calcified gallstones or sludge. No wall thickening. Biliary System: Non-dilated. Pancreas: Normal. Spleen: Normal. Adrenals: Normal. Kidneys: Normal bilaterally. Ureters: Normal. Bladder: Normal. Pelvis: No pelvic masses. No abnormal pelvic fluid. Stomach: Normal. Duodenum: Normal. Small Bowel: Normal. Colon: Normal. Appendix: Normal. Lymph Nodes: No lymphadenopathy. Peritoneum: No ascites or free air. Retroperitoneum: Normal. Vessels: Normal. Abdominal Wall: Normal. Bones: Normal. Lung Bases: Normal. Inferior Mediastinum: Normal. IMPRESSION No acute intra-abdominal findings. Normal appendix. /[place] DICTATED BY: JEAN PAUL AUSTIN MD DATE: 05/30/251625 ELECTRONICALLY SIGNED BY: JEAN PAUL AUSTIN MD DATE: 05/30/251625 ASSESSMENT: 1. Acute abdominal pain with nausea vomiting 2. Acute pancreatitis 3. Leukocytosis 4. Possible UTI PLAN: Acute abdominal pain with nausea vomiting under evaluation Acute pancreatitis -she presented to the ED with 2 days of nausea and intractable vomiting associated with abdominal pain in the epigastric region. She said that she smokes marijuana and do not smoke tobacco. Lipase 234>186. Potassium 3.1. CT abdomen pelvis revealed acute intra-abdominal findings. Urine marijuana screen was positive. CRP 6, procalcitonin< 0.05 -Patient was kept NPO and started on DNS 125 ML/HOUR. Ondansetron as PRN . Morphine 4 mg for pain management as PRN. -started on Protonix 40 mg IV b.i.d.. Give 20 mL of Maalox once -the abdominal pain associated with nausea vomiting may be secondary to cannabinoid induced hyperemesis. -we will consult GI for necessary workup. Leukocytosis Possible UTI -for which WBC count in ED was 28 which trended down today to 13. Leukocytosis can be either reactive or secondary to the infection. Urinalysis was positive for pus cells 26-50 what leukocyte esterase positive. Lactic acid 2.2 -started on Rocephin 1 g daily. -urine culture and sensitivity test result to follow. Hypokalemia -potassium this morning 3.1. Repleted. -we will check BMP and replete as needed GI prophylaxis Protonix ATTESTATION BY PHYSICIAN I have seen and examined the patient. I reviewed the documentation, medical decision making, and treatment plan as noted by the resident provider above. I agree with the findings and plan of care. Chapo Trevino MD, SUNIL MD May 31, 2025 14:12
--- NOTE | 2025-05-31 17:16 | CONS ---
GASTROENTEROLOGY CONSULTATION NOTE Date of Consultation: May 31, 2025 Time of Consultation: 17:13 History of Present Illness: [25 yo female with no know past medical history who present to ER with c/o of epigastric pain, associated with nausea and vomiting onset 2 days ago. Patient reports pain is sharp to left epigastric region. She denies having any fever, sob. on admission WBC as 28 and has trended down to 13.1. HGB is at 13.2 with platelets of 286. Lipase 234 on admission and has trended down to 186. Albumin 3.6. AST/ALT wnl. Alkaline phos was 91. On exam patient is resting in supine in no acute distress. Respirations were unlabored. BBS clear. Abdomen is soft but tender to epigastric region. Active BS present. Poc discussed and recommendations for EGD made. All questions answered and patient agreed to proceed. ] Review of Systems: CONSTITUTIONAL: No malaise or change in sensation of wellbeing. ENMT: No rhinorrhea, otorrhea, sinus pain, ear ache. CARDIOVASCULAR: No angina, palpitations, orthopnea or paroxysmal dyspnea. RESPIRATORY: No SOB. GASTROINTESTINAL: No abdominal pain, nausea, vomiting, diarrhea, hematemesis, melena or change in the patient's habitual bowel movements consistency/number. GENITOURINARY: No dysuria, hematuria or change in bladder continence. MUSCULOSKELETAL: No new muscle pain or decrease in muscular strength. No new joint swelling, redness or tenderness. SKIN: No new rash. Past Medical History: [No hypertension, diabetes, heart disease, TB or hepatitis does not take any medicines on a regular basis ] PAST SURGICAL HISTORY: [Negative ] PAST SOCIAL HISTORY: [ She lives with her mother her father of an [place], she is an o ccasional smoker occasional drinker denies any drug use or IV drug use] FAMILY HISTORY: [ See above ] Coded Allergies: No Known Allergies (Unverified Allergy, Unknown, 05/30/25) Coded Allergies: No Known Allergies (Unverified Allergy, Unknown, 05/30/25) Physical Exam: GEN: Awake, alert, oriented in person, time and place, and in no acute distress. HEENT: No rhinorrhea. Oral pharyngeal mucosa is pink, moist and within normal limits. Neck is supple with no cervical lymphadenopathy, thyromegaly or JVD. CHEST: Inspection, palpation of the chest were unremarkable. Lung auscultation revealed normal breath sounds bilaterally. CARDIAC: PMI is within normal limits. Heart sounds are regular. Normal S1, S2. No gallop or murmur. ABD: Soft, mildly tender and not distended. No peritoneal signs on palpation. No organomegaly. Normal bowel sounds. EXT: No cyanosis or clubbing. No edema. SKIN: Intact. No rashes. JOINTS: No evidence of synovitis or acute arthritis. NEURO: Alert and oriented to name, place and person. No focal motor deficits. Normal speech. Gait is normal. Strength is normal. Vital Sign (Last 24 Hours) 05/31/25 05/31/25 09:05 15:50 Temp 97.9 Pulse 61 Resp 20 B/P (MAP) 104/69 Pulse Ox 99 O2 Delivery Room Air O2 Flow Rate 0 FiO2 21 Intake & Output (last 24hrs) 05/30/25 05/30/25 05/31/25 15:00 23:00 07:00 Output Total 100 ml Balance -100 ml Laboratory: [ ] Laboratory: Test 05/31/25 03:10 05/30/25 20:14 05/30/25 13:19 05/30/25 13:14 Range/Units White Blood Count 13.1 #H 4.8-10.8 K/uL Red Blood Count 4.75 4.00-5.50 MIL/uL Hemoglobin 13.2 12.0-16.0 g/dL Hematocrit 40.5 36-48 % Mean Corpuscular Volume 85.3 79-99 fL Mean Corpuscular Hemoglobin 27.8 27.0-33.0 pg Mean Corpuscular Hemoglobin Concent 32.6 32.0-36.0 g/dL Red Cell Distribution Width 13.3 11.0-15.5 % Platelet Count 286 # 130-400 K/uL Mean Platelet Volume 10.6 H 7.5-10.5 fL Immature Granulocyte % (Auto) 0.4 0-1 % Neutrophils (%) (Auto) 64.1 40.0-77.0 % Lymphocytes (%) (Auto) 26.6 21.0-51.0 % Monocytes (%) (Auto) 8.5 3.0-13.0 % Eosinophils (%) (Auto) 0.2 0.0-8.0 % Basophils (%) (Auto) 0.2 0.0-5.0 % Neutrophils # (Auto) 8.4 H 1.8-7.7 K/uL Lymphocytes # (Auto) 3.5 1.0-4.8 K/uL Monocytes # (Auto) 1.1 H 0.1-1.0 K/uL Eosinophils # (Auto) 0.02 0.00-0.70 K/uL Basophils # (Auto) 0.03 0.00-0.20 K/uL Absolute Immature Granulocyte (auto 0.05 0-1 K/uL Nucleated Red Blood Cells 0.0 0.0-0.19 % Sodium Level 137 136-145 mmol/L Potassium Level 3.1 L 3.5-5.1 mmol/L Chloride Level 103 101-111 mmol/L Carbon Dioxide Level 28 21-32 mmol/L Blood Urea Nitrogen 12 7-18 mg/dL Creatinine 0.6 0.5-1.0 mg/dL Glomerular Filtration Rate Calc 128 >90 mL/min Random Glucose 96 70-105 mg/dL Total Calcium 8.4 L 8.5-10.1 mg/dL Total Bilirubin 0.4 0.2-1.0 mg/dL Aspartate Amino Transf (AST/SGOT) 15 10-37 U/L Alanine Aminotransferase (ALT/SGPT) 20 12-78 U/L Alkaline Phosphatase 91 50-136 U/L Lactate Dehydrogenase 149 81-234 U/L C-Reactive Protein, Quantitative 6.00 H 0.5-3.0 mg/L Total Protein 6.3 6.0-8.3 g/dL Albumin 3.6 3.5-5.0 g/dL Lipase 186 H 16-77 U/L Procalcitonin < 0.05 L 0.05-0.5 ng/mL Lactic Acid Level 1.1 0.8-2.5 mmol/L Urine Color YELLOW YELLOW Urine Appearance TURBID CLEAR Urine pH 5.5 5.0-8.0 Urine Specific [place] 1.035 H 1.001-1.031 Urine Protein 100 H NEGATIVE mg/dL Urine Glucose (UA) 50 H NEGATIVE mg/dL Urine Ketones 60 H NEGATIVE mg/dL Urine Occult Blood SMALL H NEGATIVE Urine Nitrate NEGATIVE NEGATIVE Urine Bilirubin 1 H NEGATIVE mg/dL Urine Urobilinogen 3 H 0.2-1.0 mg/dL Urine Leukocyte Esterase 75 H NEGATIVE Moses/uL Urine RBC 26-50 H 0-1 /HPF Urine WBC 26-50 H 0-1 /HPF Urine Squamous Epithelial Cells MANY 0-2 /HPF Urine Non-Squamous Epithelial Cells 1 0-2 /HPF Urine Bacteria RARE None Seen /HPF Urine Hyaline Casts 2-5 H 0-1 /LPF /LPF Urine Other Casts 9 None Seen /LPF Urine HCG, Qualitative NEGATIVE NEGATIVE Urine Opiates Screen NEGATIVE NEGATIVE Urine Barbiturates Screen NEGATIVE NEGATIVE Urine Phencyclidine Screen NEGATIVE NEGATIVE Urine Amphetamines Screen NEGATIVE NEGATIVE Urine Benzodiazepines Screen NEGATIVE NEGATIVE Urine Cocaine Screen NEGATIVE NEGATIVE Urine Marijuana (THC) Screen POSITIVE H NEGATIVE White Cell Morphology Comment See comments Triglycerides Level 86 30-200 mg/dL Serum Test, Qualitative NEGATIVE NEGATIVE Current Medications Medications (Trade) Dose Ordered Sig/Aleksandr Route PRN Reason Start Time Stop Time Status Last Admin Dose Admin Ceftriaxone Sodium (ROCEphine 1G INJ) 1 gm Q24H IVPB 05/30/25 19:30 06/09/25 19:29 05/30/25 19:33 1 GM Ceftriaxone Sodium (Rocephin 2gm Inj) 2 gm ONCE IVPB 05/30/25 13:56 05/30/25 18:00 DC 05/30/25 14:17 2 GM Dextrose/Sodium Chloride 1,000 ml @ 125 mls/hr Q8H IV 05/30/25 19:30 06/29/25 19:29 05/31/25 06:27 125 MLS/HR Famotidine (Pepcid 20mg Vial) 20 mg Q12H9 IV 05/30/25 21:00 05/31/25 11:51 DC 05/31/25 09:05 20 MG Morphine Sulfate (morPHINE 4MG SYG) 4 mg ONCE IVP 05/30/25 16:30 05/30/25 20:30 DC 05/30/25 16:11 4 MG Morphine Sulfate (morPHINE 4MG SYG) 4 mg ONCE IVP 05/30/25 16:30 05/30/25 20:30 DC Morphine Sulfate (morPHINE 4MG SYG) 4 mg Q4H PRN IV MODERATE PAIN (4-6) 05/30/25 19:30 06/06/25 19:29 05/31/25 12:58 4 MG Ondansetron HCl (zoFRAN 4MG INJ) 4 mg Q8H PRN IVP NAUSEA/VOMITING 05/30/25 19:30 06/29/25 19:29 05/31/25 07:34 4 MG Pantoprazole Sodium (PROTonix 40MG INJ) 40 mg BID IVP 05/31/25 21:00 06/30/25 20:59 Potassium Chloride 100 ml @ 50 mls/hr AD PRN IV POTASSIUM PROTOCOL 05/31/25 09:00 06/30/25 08:59 05/31/25 12:58 50 MLS/HR Sodium Chloride 2,286 ml @ 762 mls/hr ONCE IV 05/30/25 14:00 05/30/25 18:00 DC 05/30/25 14:17 762 MLS/HR Diagnostics / Radiology: [COPY/PASTE HERE IF NO REPORTS PLEASE DELETE SECTION] Assessment: [Abdominal pain, Nausa and vomiting ] Plan: [ NPO EGD in am Please call with questions, concerns, and change in clinical status Thank you for this consult. ] ROSA BAUER [employer] May 31, 2025 17:16
[2025-06-01] VITALS (19 sets, daily range): BP systolic 110–145; BP diastolic 70–98; PULSE 56–109; RESP 15–20; TEMP 97.3–98.4; O2SAT 100
[2025-06-01 04:57] LABS: IMMATURE GRANULOCYTE ABSOLUTE 0.04 K/uL (0-1); NUCLEATED RED BLOOD CELLS 0.0 % (0.0-0.19); PLATELET COUNT (AUTO) 275 K/uL (130-400); RED BLOOD CELL COUNT(AUTO) 4.67 MIL/uL (4.00-5.50); RED CELL DISTRIBUTION WIDTH 13.1 % (11.0-15.5); WHITE BLOOD COUNT (AUTO) 9.2 K/uL (4.8-10.8)
[2025-06-01 05:07] LABS: CREATININE 0.7 mg/dL (0.5-1.0); GLOMERULAR FILTR. RATE CALC 123.0 mL/min (>90); GLUCOSE,RANDOM 92.0 mg/dL (70-105); SODIUM SERUM 137.0 mmol/L (136-145); UREA NITROGEN, BLOOD 5.0 mg/dL (7-18)
--- NOTE | 2025-06-01 09:03 | NUR ---
PATIENT OFF UNIT PATIENT OFF UNIT FOR EGD PROCEDURE.
[2025-06-01] MEDS ORDERED: LIDOCAINE PF 100MG/5ML (2%) SYRINGE 5ML ONE (09:53)
--- NOTE | 2025-06-01 09:57 | PN ---
[facility] PROGRESS NOTE Date of Service: Jun 01, 2025 Time of Service: 09:48 SUBJECTIVE: She is a 25-year-old female presented with a chief complaint of nausea and vomiting associated with epigastric abdominal pain for last 2 days. He had 15- 20 episodes of vomiting yesterday which was greenish. She did not complain of hematemesis, loose stool, burning micturition, shortness of breath, cough, dizziness and constipation. She said that she occasionally consumes marijuana and last time she had was 1 week back. She admitted that her abdominal pain gets better with taking bath. She do not consume alcohol. In ED the pertinent lab was [place] CBC 16160, lipase 236, creatinine 1.2, lactic acid 2.2 has L on, urine with pus cells 25-50, positive for leukocyte esterase. CT abdomen pelvis with contrast revealed no acute abdomen abnormality. She was kept NPO, and started on D NS at 1:25 a.m. mL/hour, Rocephin1 g daily, and ondansetron. She was admitted on the floor for further evaluation and management. 05/31/2025-she was evaluated bedside this morning. She was complaining of abdominal pain and nausea. He is hemodynamically stable her pertinent lab [place] 84865, potassium 3.1, lactic acid 2.2, lipase 234>186, CRP 6. She is kept NPO for possible acute pancreatitis and intractable nausea vomiting. She is continued on IV fluid, Zofran PRN, morphine PRN and Rocephin. Electrolytes repleted. Urine culture was sent. Started on Protonix 40 mg IV b.i.d. consulted Gastroenterology for necessary evaluation. Plan as discussed below. 06/01/2025-she was evaluated bedside this morning. She complained of abdominal pain and nausea. She is hemodynamically stable with the pertinent lab of potassium 2.9, CRP 6> 3.80, lipase 234> 186, lactic acid 1.1 . Urine drug positive for THC. GI consulted who recommended upper GI endoscopy this morning. On Rocephin for UTI. Awaiting urine culture sensitivity result. Rest of the plan as discussed below. REVIEW OF SYSTEMS CONSTITUTIONAL: Denies fevers, chills, or night sweats. No unintentional weight loss reported. NEUROLOGICAL: Denies headache, amaurosis fugax, motor weakness, sensory deficit, vertigo/spinning sensation, gait abnormalities, or tremors. ENT: No hearing loss, otalgia, otorrhea, rhinitis, rhinorrhea, hoarseness, or sore throat. CARDIOVASCULAR: Denies any exertional angina, dyspnea on exertion, orthopnea, paroxysmal nocturnal dyspnea, palpitations, life-threatening arrhythmias, claudication. PULMONARY: Denies any shortness of breath, cough, phlegm/sputum, hemoptysis, pleuritic chest pain. SLEEP: Denies morning headaches, daytime somnolence or napping. Denies difficulty falling asleep, staying asleep, waking from sleep. Denies knowledge of snoring. GASTROINTESTINAL: Denies any type of dysphagia to either liquids or solids. Positive nausea, vomiting, no pyrosis, no early satiety, positive abdominal pain, no diarrhea, constipation, or changes in stool consistency or caliber. Denies coffee-ground emesis, hematemesis, hematochezia, or melanotic stools. GENITOURINARY: Denies frequency, urgency, nocturia, hematuria or incontinence (Storage/Irritative symptoms.) Low urinary stream, straining to void, urinary intermittency or hesitancy, splitting of the voiding stream, terminal dribbling. ENDOCRINOLOGIC: Denies polyuria, polydipsia, polyphagia or heat/cold intolerances. HEMATOLOGIC: Denies thrombophilia/previous clots, or coagulopathy/bleeding disorders. ONCOLOGIC: Denies personal history of malignancy. DERMATOLOGIC: Denies rashes or pruritus. PSYCHIATRIC: Denies any suicidal or homicidal ideation. Denies hallucinations. PHYSICAL EXAM GENERAL APPEARANCE: The patient is awake, alert, and oriented, in no acute cardiopulmonary distress. NEUROLOGICAL: Cranial nerves II-XII grossly intact. Motor is 5/5 in bilateral upper and lower extremities proximal to distal. No sensory deficits. HEENT: Face is symmetric. Pupils are equal and reactive. Extraocular movements are intact. NECK: Supple. No JVD. No thyromegaly. No submental, submandibular, pre-/postauricular, occipital or supraclavicular lymphadenopathy. CHEST: Normal chest expansion. No Telemetry. LUNGS: Absence of any rales, rhonchi or any wheezing. CARDIOVASCULAR: Regular. S1 and S2 normal. No appreciable rubs, murmurs or gallops. ABDOMEN: Soft, positive tenderness, and nondistended. There is no rebound, voluntary guarding, or rigidity. Bowel sounds are hypoactive throughout the abdomen : Deferred. No Bernard. EXTREMITIES: Non-edematous and not cyanotic. No clubbing. Good capillary refill. SKIN: No skin breakdown. Vital Signs (last 8hr) Date Time Temp Pulse Resp B/P (MAP) Pulse Ox O2 Delivery O2 Flow Rate FiO2 06/01/25 08:11 97.5 59 20 118/75 100 Room Air 06/01/25 04:30 98.4 56 17 115/73 97 Room Air LABS: Laboratory: Test 06/01/25 04:43 05/31/25 03:10 05/30/25 20:14 05/30/25 13:19 Range/Units White Blood Count 9.2 4.8-10.8 K/uL Red Blood Count 4.67 4.00-5.50 MIL/uL Hemoglobin 13.0 12.0-16.0 g/dL Hematocrit 40.6 36-48 % Mean Corpuscular Volume 86.9 79-99 fL Mean Corpuscular Hemoglobin 27.8 27.0-33.0 pg Mean Corpuscular Hemoglobin Concent 32.0 32.0-36.0 g/dL Red Cell Distribution Width 13.1 11.0-15.5 % Platelet Count 275 130-400 K/uL Mean Platelet Volume 10.4 7.5-10.5 fL Immature Granulocyte % (Auto) 0.4 0-1 % Neutrophils (%) (Auto) 60.9 40.0-77.0 % Lymphocytes (%) (Auto) 29.8 21.0-51.0 % Monocytes (%) (Auto) 8.6 3.0-13.0 % Eosinophils (%) (Auto) 0.1 0.0-8.0 % Basophils (%) (Auto) 0.2 0.0-5.0 % Neutrophils # (Auto) 5.6 1.8-7.7 K/uL Lymphocytes # (Auto) 2.7 1.0-4.8 K/uL Monocytes # (Auto) 0.8 0.1-1.0 K/uL Eosinophils # (Auto) 0.01 0.00-0.70 K/uL Basophils # (Auto) 0.02 0.00-0.20 K/uL Absolute Immature Granulocyte (auto 0.04 0-1 K/uL Nucleated Red Blood Cells 0.0 0.0-0.19 % Sodium Level 137 136-145 mmol/L Potassium Level 2.9 *L 3.5-5.1 mmol/L Chloride Level 102 101-111 mmol/L Carbon Dioxide Level 29 21-32 mmol/L Blood Urea Nitrogen 5 L 7-18 mg/dL Creatinine 0.7 0.5-1.0 mg/dL Glomerular Filtration Rate Calc 123 >90 mL/min Random Glucose 92 70-105 mg/dL Total Calcium 8.4 L 8.5-10.1 mg/dL Magnesium Level 1.80 1.80-2.40 mg/dL C-Reactive Protein, Quantitative 3.80 H 0.5-3.0 mg/L Procalcitonin < 0.05 L 0.05-0.5 ng/mL Total Bilirubin 0.4 0.2-1.0 mg/dL Aspartate Amino Transf (AST/SGOT) 15 10-37 U/L Alanine Aminotransferase (ALT/SGPT) 20 12-78 U/L Alkaline Phosphatase 91 50-136 U/L Lactate Dehydrogenase 149 81-234 U/L Total Protein 6.3 6.0-8.3 g/dL Albumin 3.6 3.5-5.0 g/dL Lipase 186 H 16-77 U/L Lactic Acid Level 1.1 0.8-2.5 mmol/L Urine Color YELLOW YELLOW Urine Appearance TURBID CLEAR Urine pH 5.5 5.0-8.0 Urine Specific [place] 1.035 H 1.001-1.031 Urine Protein 100 H NEGATIVE mg/dL Urine Glucose (UA) 50 H NEGATIVE mg/dL Urine Ketones 60 H NEGATIVE mg/dL Urine Occult Blood SMALL H NEGATIVE Urine Nitrate NEGATIVE NEGATIVE Urine Bilirubin 1 H NEGATIVE mg/dL Urine Urobilinogen 3 H 0.2-1.0 mg/dL Urine Leukocyte Esterase 75 H NEGATIVE Moses/uL Urine RBC 26-50 H 0-1 /HPF Urine WBC 26-50 H 0-1 /HPF Urine Squamous Epithelial Cells MANY 0-2 /HPF Urine Non-Squamous Epithelial Cells 1 0-2 /HPF Urine Bacteria RARE None Seen /HPF Urine Hyaline Casts 2-5 H 0-1 /LPF /LPF Urine Other Casts 9 None Seen /LPF Urine HCG, Qualitative NEGATIVE NEGATIVE Urine Opiates Screen NEGATIVE NEGATIVE Urine Barbiturates Screen NEGATIVE NEGATIVE Urine Phencyclidine Screen NEGATIVE NEGATIVE Urine Amphetamines Screen NEGATIVE NEGATIVE Urine Benzodiazepines Screen NEGATIVE NEGATIVE Urine Cocaine Screen NEGATIVE NEGATIVE Urine Marijuana (THC) Screen POSITIVE H NEGATIVE Test 05/30/25 13:14 Range/Units White Cell Morphology Comment See comments Triglycerides Level 86 30-200 mg/dL Serum Test, Qualitative NEGATIVE NEGATIVE Current Medications Medications (Trade) Dose Ordered Sig/Aleksandr Route PRN Reason Start Time Stop Time Status Last Admin Dose Admin Ceftriaxone Sodium (ROCEphine 1G INJ) 1 gm Q24H IVPB 05/30/25 19:30 06/09/25 19:29 05/31/25 21:21 1 GM Ceftriaxone Sodium (Rocephin 2gm Inj) 2 gm ONCE IVPB 05/30/25 13:56 05/30/25 18:00 DC 05/30/25 14:17 2 GM Dextrose/Sodium Chloride 1,000 ml @ 125 mls/hr Q8H IV 05/30/25 19:30 06/29/25 19:29 05/31/25 21:20 125 MLS/HR Famotidine (Pepcid 20mg Vial) 20 mg Q12H9 IV 05/30/25 21:00 05/31/25 11:51 DC 05/31/25 09:05 20 MG Magnesium Sulfate 50 ml @ 0 mls/hr PROTOCOL PRN IV PROTOCOL 06/01/25 05:30 07/01/25 05:29 Morphine Sulfate (morPHINE 4MG SYG) 4 mg ONCE IVP 05/30/25 16:30 05/30/25 20:30 DC 05/30/25 16:11 4 MG Morphine Sulfate (morPHINE 4MG SYG) 4 mg ONCE IVP 05/30/25 16:30 05/30/25 20:30 DC Morphine Sulfate (morPHINE 4MG SYG) 4 mg Q4H PRN IV MODERATE PAIN (4-6) 05/30/25 19:30 06/06/25 19:29 06/01/25 05:56 4 MG Ondansetron HCl (zoFRAN 4MG INJ) 4 mg Q8H PRN IVP NAUSEA/VOMITING 05/30/25 19:30 06/29/25 19:29 06/01/25 06:15 4 MG Pantoprazole Sodium (PROTonix 40MG INJ) 40 mg BID IVP 05/31/25 21:00 06/30/25 20:59 06/01/25 08:42 40 MG Potassium Chloride 100 ml @ 50 mls/hr AD PRN IV POTASSIUM PROTOCOL 05/31/25 09:00 06/30/25 08:59 06/01/25 08:43 50 MLS/HR Sodium Chloride 2,286 ml @ 762 mls/hr ONCE IV 05/30/25 14:00 05/30/25 18:00 DC 05/30/25 14:17 762 MLS/HR DIAGNOSTICS / RADIOLOGY: ASSESSMENT: 1. Acute abdominal pain with nausea vomiting 2. Acute pancreatitis 3. Acute kidney injury 4. Leukocytosis 5. Possible UTI PLAN: Acute abdominal pain with nausea vomiting under evaluation Acute pancreatitis -she presented to the ED with 2 days of nausea and intractable vomiting associated with abdominal pain in the epigastric region. She said that she smokes marijuana and do not smoke tobacco. Lipase 234>186. Potassium 3.1. CT abdomen pelvis revealed acute intra-abdominal findings. Urine marijuana screen was positive. CRP 6, procalcitonin< 0.05 -Patient was kept NPO and started on DNS 125 ML/HOUR. Ondansetron as PRN . Morphine 4 mg for pain management as PRN. -the abdominal pain associated with nausea vomiting may be secondary to cannabinoid induced hyperemesis. -as per GI, she went for upper GI endoscopy which revealed the features of chronic gastritis. Recommended Protonix 40 mg daily -started on full liquid diet. Acute kidney injury (Resolved) -she came with creatinine 1.2. Which may be prerenal in etiology because of vigorous vomiting. -on day NS 125 mL for hour -creatinine this morning 0.7 Leukocytosis Possible UTI -for which WBC count in ED was 28 which trended down today to 13. Leukocytosis can be either reactive or secondary to the infection. Urinalysis was positive for pus cells 26-50 what leukocyte esterase positive. Lactic acid 2.2 -started on Rocephin 1 g daily. -urine culture resulted [id number] CFU per mL for gram-positive cocci in clusters. Hypokalemia -potassium this morning 2.9. Repleted. -we will check BMP and replete as needed GI prophylaxis Protonix ATTESTATION BY PHYSICIAN I have seen and examined the patient. I reviewed the documentation, medical decision making, and treatment plan as noted by the resident provider above. I agree with the findings and plan of care. Chapo Son MD, SUNIL MD Jun 01, 2025 09:57
--- NOTE | 2025-06-01 11:02 | NUR ---
UNIT ARRIVAL PATIENT BACK ON UNIT FROM EGD PROCEDURE. RECEIVED PATIENT FROM [facility] PACU NURSE. PATIENT AWAKE ALERT AND ORIENTED. PATIENT COMPLAINING OF NAUSEA AND PAIN TO ABDOMEN. VITALS STABLE IN NO ACUTE DISTRESS.
[2025-06-01] MEDS: MAGNESIUM 2GM PREMIX 50ML 50 ML IV PRN (14:25)
[2025-06-01] MEDS ORDERED: DICY20TA3 PO (16:35)
[2025-06-01] MEDS ORDERED: PANT40TA PO (16:35)
--- NOTE | 2025-06-01 17:06 | DS ---
Discharge Summary Hospital Course Summary: She is a 25-year-old female presented with a chief complaint of nausea and vomiting associated with epigastric abdominal pain for last 2 days. He had 15- 20 episodes of vomiting yesterday which was greenish. She did not complain of hematemesis, loose stool, burning micturition, shortness of breath, cough, dizziness and constipation. She said that she occasionally consumes marijuana and last time she had was 1 week back. She admitted that her abdominal pain gets better with taking bath. She do not consume alcohol. In ED the pertinent lab was [place] CBC 45064, lipase 236, creatinine 1.2, lactic acid 2.2 has L on, urine with pus cells 25-50, positive for leukocyte esterase. CT abdomen pelvis with contrast revealed no acute abdomen abnormality. She was kept NPO, and started on D NS at 1:25 a.m. mL/hour, Rocephin1 g daily, and ondansetron. She was admitted on the floor for further evaluation and management. On the floor she was kept NPO and continued on IV fluid and Rocephin. Zofran and pain medications including morphine was kept as PRN. As her lipase was high up to 234 with these symptoms, she was treated in the line of acute pancreatitis. Her pertinent lab was CRP 6, lipase 234 which trended down to 186, lactic acid 2.1 which trended down to 1.1, creatinine 1.2 was trended down to 0.7. Urine drug was positive for THC. Urine culture was sent because of abnormal urinalysis.Her urine culture is not positive for significant bacter iuria and she also do not have urinary symptoms. GI was consulted for ongoing abdominal pain and nausea. They recommended for the upper GI endoscopy which revealed features of chronic gastritis. She was started on full liquid diet as she improved with her symptoms with ongoing treatment. He is hemodynamically stable and tolerating diet with relieved symptoms. She is being discharged today with pantoprazole 40 mg daily for 30 days and dicyclomine 20 mg 3 times a day for 3 days. She will follow-up to PCP and GI within 1 week. Driftman(s): [employer], surgery Procedure(s): UPPER GI ENDOSCOPY ON 06/01/2025 IMPRESSION : -Normal esophagus, biopsied. -Chronic gastritis. Biopsied -Normal examined duodenum Recommendations: -Await pathology results. -No aspirin, ibuprofen, naproxen or other nonsteroidal anti-inflammatory drugs. -Mass follow an anti-reflux regimen. -Use Protonix 40 mg per oral daily. -Return to GI clinic in 1 week. PATIENT: GIBSON SANDOVAL MR#: [id number] : 2000 SEX: F AGE: 25 LOCATION: [facility] ORDER [id number] STATUS: REG ER REPORT#: [id number] SERVICE 1356 REASON: PERIUMBILICAL PAIN, 18035 WBCS ORDERING PHYSICIAN: YAJAIRA BOBBY PRODUCT MANAGER [employer] PROCEDURE: ABD PEL W - CT ABDOMEN/PELVIS W/CONTRAST CLINICAL INFORMATION Periumbilical pain COMPARISON None. TECHNIQUE Volumetric helical CT images of the abdomen and pelvis with contrast FINDINGS Liver: Normal. Gallbladder: No calcified gallstones or sludge. No wall thickening. Biliary System: Non-dilated. Pancreas: Normal. Spleen: Normal. Adrenals: Normal. Kidneys: Normal bilaterally. Ureters: Normal. Bladder: Normal. Pelvis: No pelvic masses. No abnormal pelvic fluid. Stomach: Normal. Duodenum: Normal. Small Bowel: Normal. Colon: Normal. Appendix: Normal. Lymph Nodes: No lymphadenopathy. Peritoneum: No ascites or free air. Retroperitoneum: Normal. Vessels: Normal. Abdominal Wall: Normal. Bones: Normal. Lung Bases: Normal. Inferior Mediastinum: Normal. IMPRESSION No acute intra-abdominal findings. Normal appendix. /[place] DICTATED BY: JEAN PAUL AUSTIN MD DATE: 05/30/251625 ELECTRONICALLY SIGNED BY: JEAN PAUL AUSTIN MD DATE: 05/30/251625 Assessment/Plan: ASSESSMENT: 1. Acute abdominal pain with nausea vomiting 2. Acute pancreatitis 3. Leukocytosis 4. Possible UTI 5. Acute kidney injury Discharge Instructions: You were admitted for the evaluation and management of abdominal pain associated with nausea and vomiting. -You are prescribed Protonix 40 mg per oral daily for 30 days. -You are prescribed dicyclomine 20 mg 3 times a day for 3 days. -Please take soft GI diet -Please follow-up to PCP within 1 week -Please follow-up to iron cutter within 1 week. Home Medications: No Active Prescriptions or Reported Meds New Medications: Dicyclomine HCl (Dicyclomine HCl) 20 Mg Tablet 1 TAB PO TID for 3 Days, #10 TAB 0 Refills Pantoprazole Sodium (Protonix) 40 Mg Tablet.dr 40 MG PO DAILY for 30 Days, #30 Time spent arranging discharge: 1-30 minutes ATTESTATION BY PHYSICIAN I have seen and examined the patient. I reviewed the documentation, medical decision making, and treatment plan as noted by the resident provider above. I agree with the findings and plan of care. Chapo Son MD, SUNIL MD Jun 01, 2025 17:06
--- NOTE | 2025-06-01 18:45 | NUR ---
PATIENT DISCHARGED PERIPHERAL IV DISCONTINUED WITHOUT COMPLICATIONS. CATHETER INTACT. DISCHARGE INSTRUCTIONS GIVEN. PRESCRIPTIONS FAXED TO PHARMACY. PATIENT AWARE TO F/U WITH [facility] IN ONE WEEK. ALL QUESTIONS ANSWERED. PATIENT TAKEN DOWN BY WHEELCHAIR.
[2025-06-02] MEDS ORDERED: DICY20TA3 PO (15:56)
[2025-06-02] MEDS ORDERED: PANT40TA54 PO (15:58)
== END 2025-06-01 18:34 | disposition home or self-care (01) | DRG 439 ==
LOC: EDH 12:53 → EDHIP 17:38 → 4BH 21:56
PROVIDERS: ADMIT Family Medicine; ATTEND Family Medicine
PROC: 0DB98ZX Excision of Duodenum, Via Natural or Artificial Opening Endoscopic, Diagnostic (ICD-10-PCS; principal; 2025-06-01)
PROC: 0DB68ZX Excision of Stomach, Via Natural or Artificial Opening Endoscopic, Diagnostic (ICD-10-PCS; 2025-06-01)
DX: K85.90 Acute pancreatitis without necrosis or infection, unspecified (principal); N17.9 Acute kidney failure, unspecified; N39.0 Urinary tract infection, site not specified; I10 Essential (primary) hypertension; E87.6 Hypokalemia; F17.200 Nicotine dependence, unspecified, uncomplicated; K29.50 Unspecified chronic gastritis without bleeding; Z79.899 Other long term (current) drug therapy
CPT/HCPCS: 36415; 43239; 74177; 80048; 80053; 80305; 81001; 81025; 83605; 83615; 83690; 83735; 84132; 84145; 84478; 84703; 85025; 86140; 87040; 87086; 87186; 99285; G0378; J0696; J2003; J2270; J2405; J2470; J2704; J3475; J3480; J3490; J7030; J7042; Q9967; A4215; A4222; A4223; A4620